=== PATIENT | male | born 1965 | race Caucasian/White ===

== ENCOUNTER 2018-08-29 05:34 | Observation (INO) | payer MEDICAID, OTHER ==
[2018-08-26 16:48] VITALS: Ht 170.2 cm; Wt 88.4 kg
[~2018-08-29] VITALS: Ht 170.2 cm; Wt 88.4 kg
[2018-08-29] VITALS (15 sets, daily range): BP systolic 112–141; BP diastolic 62–87; PULSE 64–104; RESP 11–22
[2018-08-29] MEDS ORDERED: EPHEDrine SULFATE 50 MG/5 ML SYG ONE (07:00)
[2018-08-29] MEDS ORDERED: GELATIN SIZE 100 SPONGE ONE (07:03)
[2018-08-29] MEDS ORDERED: POLYMYXIN/BACITRACIN 1L IRRIG ONE (07:03)
[2018-08-29] MEDS ORDERED: BUPIVACAINE 0.5%/EPI (SDV) 30 ML INJ ONE (07:03)
[2018-08-29] MEDS ORDERED: THROMBIN (BOVINE) 5,000 UNIT VIAL TP ONE (07:03)
--- NOTE | 2018-08-29 07:08 | HPN ---
Date/Time of Note Date/Time of Note DATE: 08/29/18 TIME: 07:08 Interval H&P Admission Note Pt. seen H&P reviewed: No system changes ANA MARIA NARANJO MD Aug 29, 2018 07:08
--- NOTE | 2018-08-29 07:30 | PREAC ---
Date/Time of Note Date/Time of Note DATE: 08/29/18 TIME: 07:29 Anesthesia Eval and Record Evaluation Time Pre-Procedure Interview DATE: 08/29/18 TIME: 07:29 Age 52 Sex male NPO: 8 hrs Preoperative diagnosis Lumbar Radiculopathy Planned procedure Left Lumbar L4-5 Microdiscectomy Past Medical History Past Medical History: None Surgery & Anesthesia Issues No known issue Meds Anticoagulation: No Beta Tristin within 24 hr: No Reason Beta Tristin not given: Pt. not on B-Tristin No Active Prescriptions or Reported Meds Meds reviewed: Yes Allergies Coded Allergies: Penicillins (Verified Allergy, Unknown, SHORTNESS OF BREATH, 08/29/18) PER PT Allergies Reviewed: Yes Labs/Studies Labs Reviewed: Reviewed by anesthesiologist test: N/A Studies: ECG (n/a), CXR (n/a) Pre-procedure Exam Last vitals Vital Signs Date Temp Pulse Resp B/P (MAP) Pulse Ox O2 O2 Flow FiO2 Time Delivery Rate 08/29/18 97.4 64 18 141/87 97 Room Air 06:30 (105) Airway: Adequate mouth opening, Adequate thyromental dist Mallampati: Mallampati II Teeth: Normal Lung: Normal Heart: Normal ASA Physical Status ASA physical status: 2 Emergency: None Planned Anesthetic General/MAC: ETT Planned Pain Management Parenteral pain med Pre-operative Attestations Prior to commencing anesthesia and surgery, the patient was re-evaluated, there was verification of: *The patient's identity *The results of appropriate recent lab work and preoperative vital signs *The above evaluation not changing prior to induction *Anesthetic plan, risk benefits, alternative and complications discussed with patient/family; questions answered; patient/family understands, accepts and wishes to proceed. TABATHA MORENO MD Aug 29, 2018 07:30
[2018-08-29] MEDS ORDERED: HYDROmorphONE 2 MG/ML SYG ONE ×2 (07:34→07:35)
[2018-08-29] MEDS ORDERED: ROCURONIUM 50 MG INJ ONE (07:34)
[2018-08-29] MEDS ORDERED: MIDAZOLAM 1 MG/ML 2 ML INJ ONE (07:34)
[2018-08-29] MEDS ORDERED: CEFAZOLIN 1 GM INJ ONE (07:34)
[2018-08-29] MEDS ORDERED: PROPOFOL 20 ML ONE (07:34)
[2018-08-29] MEDS ORDERED: METOCLOPRAMIDE 10 MG INJ ONE (08:05)
[2018-08-29] MEDS ORDERED: DEXAMETHASONE 4 MG/ML 5 ML INJ ONE (08:05)
[2018-08-29] MEDS ORDERED: ONDANSETRON 4 MG INJ ONE (08:05)
[2018-08-29] MEDS ORDERED: FENTAnyl 50 MCG/ML VIAL IV PRN ×3 (08:30)
[2018-08-29] MEDS ORDERED: LABETALOL HCL 20MG INJ IV PRN (08:30)
[2018-08-29] MEDS ORDERED: DIPHENHYDRAMINE 50 MG INJ IV PRN (08:30)
[2018-08-29] MEDS ORDERED: METOCLOPRAMIDE 10 MG INJ IV PRN (08:30)
[2018-08-29] MEDS ORDERED: EPHEDrine SULFATE 50 MG/5 ML SYG IV PRN (08:30)
[2018-08-29] MEDS ORDERED: ONDANSETRON 4 MG INJ IV PRN ×2 (08:30→10:00)
[2018-08-29] MEDS ORDERED: OXYCODONE/ACETAMINOPHEN (5/325) TAB PO PRN ×2 (08:30)
[2018-08-29] MEDS ORDERED: MEPERIDINE 25 MG INJ IV PRN (08:30)
[2018-08-29] MEDS ORDERED: HYDROmorphONE 1 MG/5 ML IV SYRINGE IV PRN ×3 (08:30)
[2018-08-29] MEDS ORDERED: HEMOSTATIC MATRIX SYG ZFS ONE (08:47)
[2018-08-29] MEDS ORDERED: BETAMET NA PHOS/AC(6 MG/ML) 5ML INJ ONE (08:52)
[2018-08-29] MEDS ORDERED: SUGAMMADEX SODIUM 200 MG/2 ML VIAL IV ONE (09:27)
--- NOTE | 2018-08-29 09:42 | OPR ---
Date/Time of Note Date/Time of Note DATE: 08/29/18 TIME: 09:36 Operative Report Free Text/Dictation DATE OF OPERATION: 08/29/2018 PREOPERATIVE DIAGNOSES: Left L4-5 paracentral disk herniation with L5 radiculopathy POSTOPERATIVE DIAGNOSES: Left L4-5 paracentral disk herniation with L5 radiculopathy OPERATION PERFORMED: Left L4-S5 microdiscectomy SURGEON: Ana Maria Naranjo MD OPERATOR COATING FURNACE:MEGA Elder ANESTHESIA: General endotracheal ESTIMATED BLOOD LOSS: Minimal SURGICAL INDICATION: The patient is a 52 year-old male who presents with a history of left lower extremity pain and weakness. He was found to have a disc herniation which correlated well with his symptoms. The patient had failed conservative treatment. Risks, benefits, and alternatives to microdiscectomy were explained to the patient and they wished to proceed. Risks explained included but were not exclusive of bleeding, infection, cauda equina syndrome, nerve injury, dural tear, iatrogenic instability, recurrent disc herniation, fracture, vascular injury, bowel injury, stroke, heart attack and pulmonary embolism. DESCRIPTION OF TECHNIQUE: The patient was identified in the preoperative area and taken to the operating room. Rapid induction of general endotracheal anesthesia was performed. The patient was given 2 g of cefazolin for prophylaxi s. The patient was then placed in the prone position on the OSI radiolucent table on top of a Chai frame. All bony prominences well padded. The back was prepped and draped in the usual sterile manner. A time out was held. Using a spinal needle and intraoperative fluoroscopy, the appropriate level was clearly identified. The skin was injected using 0.25% Marcaine with epinephrine. Longitudinal midline incision was then created using a 10 blade. Further dissection through soft tissue was performed using electrocautery down to the spinous processes. The dissection was taken down the left side of the lamina and over the facet joint capsule. A self-retaining retractor was applied. Again, intraoperative fluoroscopy confirmed the appropriate level. The microscope was brought into use for microdissection. A small portion of the caudal aspect of the cephalad lamina was resected using a high-speed bur. A series of Kerrison rongeurs were then used to resect the ligamentum flavum. The dura and traversing nerve root were both directly visualized. These were retracted gently in a medial direction. Immediately, the extruded disc fragment was noted. The pseudo anulus was incised using an 15 blade. Several loose fragments of disk were removed. These were removed back to a stable portion of the disk. The disk space was further pressurized using a using normal saline through a syringe to ensure that no loose fragments remained behind. Palpation with a ball-tip probe did not reveal any further stenosis. The traversing left L5 nerve root was noted to be significantly decompressed. Meticulous attention was paid towards hemostasis using FloSeal as well as Gelfoam and thrombin. Care was taken to remove all FloSeal and Gelfoam prior to wound closure. The fascia was then closed using 0 Vicryl in an interrupted fashion. Subcutaneous tissue was closed using 2-0 Vicryl in an interrupted fashion. The skin was closed using a running 4-0 Monocryl stitch. The wound was dressed using Dermabond and a sterile gauze. The patient was returned to the supine position. He was extubated immediately postoperatively and taken to the recovery room in stable condition. I was physically present and participated in the entire operation from incision to closure. COMPLICATIONS: None. Procedure Date: Aug 29, 2018 Preoperative Diagnosis Left L4-5 paracentral disk herniation with L5 radiculopathy Postoperative Diagnosis Left L4-5 paracentral disk herniation with L5 radiculopathy Operation/Procedure Performed Left L4-S5 microdiscectomy Surgeon see signature line Upholstery Cutter MEGA Elder Anesthesia Type: general Estimated Blood Loss: none Transfusion none Specimen Left L4-5 disk Grafts/Implants none Complications none Pt Condition Post Procedure: stable Disposition: PACU Procedure Description DESCRIPTION OF TECHNIQUE: The patient was identified in the preoperative area an d taken to the operating room. Rapid induction of general endotracheal anesthesia was performed. The patient was given 2 g of cefazolin for prophylaxis. The patient was then placed in the prone position on the OSI radiolucent table on top of a Chai frame. All bony prominences well padded. The back was prepped and draped in the usual sterile manner. A time out was held. Using a spinal needle and intraoperative fluoroscopy, the appropriate level was clearly identified. The skin was injected using 0.25% Marcaine with epinephrine. Longitudinal midline incision was then created using a 10 blade. Further dissection through soft tissue was performed using electrocautery down to the spinous processes. The dissection was taken down the left side of the lamina and over the facet joint capsule. A self-retaining retractor was applied. Again, intraoperative fluoroscopy confirmed the appropriate level. The microscope was brought into use for microdissection. A small portion of the caudal aspect of the cephalad lamina was resected using a high-speed bur. A series of Kerrison rongeurs were then used to resect the ligamentum flavum. The dura and traversing nerve root were both directly visualized. These were retracted gently in a medial direction. Immediately, the extruded disc fragment was noted. The pseudo anulus was incised using an 15 blade. Several loose fragments of disk were removed. These were removed back to a stable portion of the disk. The disk space was further pressurized using a using normal saline through a syringe to ensure that no loose fragments remained behind. Palpation with a ball-tip probe did not reveal any further stenosis. The traversing left L5 nerve root was noted to be significantly decompressed. Meticulous attention was paid towards hemostasis using FloSeal as well as Gelfoam and thrombin. Care was taken to remove all FloSeal and Gelfoam prior to wound closure. The fascia was then closed using 0 Vicryl in an interrupted fashion. Subcutaneous tissue was closed using 2-0 Vicryl in an interrupted fashion. The skin was closed using a running 4-0 Monocryl stitch. The wound was dressed using Dermabond and a sterile gauze. The patient was returned to the supine position. He was extubated immediately postoperatively and taken to the recovery room in stable condition. I was physically present and participated in the entire operation from incision to closure. ANA MARIA NARANJO MD Aug 29, 2018 09:42
--- NOTE | 2018-08-29 09:45 | PDOCDIS ---
Discharge Instructions CONDITION [id number] Patient Condition: [id number] Good HOME CARE INSTRUCTIONS: [id number] Diet Instructions: [id number] Regular ACTIVITY: [id number] Activity Restrictions: [id number] Avoid heavy lifting [id number] Bathing Restrictions: [id number] Shower FOLLOW UP/APPOINTMENTS Follow-up Plan Follow-up with Dr. Naranjo in 2 weeks ANA MARIA NARANJO MD Aug 29, 2018 09:45
--- NOTE | 2018-08-29 09:53 | PAC ---
Date/Time of Note Date/Time of Note DATE: 08/29/18 TIME: 09:53 Post-Anesthesia Notes Post-Anesthesia Note Last documented vital signs Vital Signs Date Temp Pulse Resp B/P (MAP) Pulse Ox O2 O2 Flow FiO2 Time Delivery Rate 08/29/18 98.8 64 18 141/87 97 Room Air 09:47 (105) Activity: WNL Respiratory function: WNL Cardiovascular function: WNL Mental status: Baseline Pain reasonably controlled: Yes Hydration appropriate: Yes Nausea/Vomiting absent: Yes TABATHA MORENO MD Aug 29, 2018 09:53
[2018-08-29] MEDS ORDERED: ACETAMINOPHEN 325 MG TAB PO PRN (10:00)
[2018-08-29] MEDS ORDERED: HYDROmorphONE 0.5 MG/0.5 ML SYG IV PRN (10:00)
[2018-08-29] MEDS ORDERED: HYDROCODONE/APAP (5/325) TAB PO PRN ×2 (10:00)
[2018-08-29] MEDS ORDERED: PROCHLORPERAZINE 10 MG TAB PO PRN (10:00)
[2018-08-29] MEDS ORDERED: NACL 0.9% 3 ML SYG IV SCH (10:00)
[2018-08-29] MEDS ORDERED: NALOXONE (0.4 MG/ML) INJ IV PRN (10:00)
== END 2018-08-29 12:30 | disposition home or self-care (01) ==
LOC: SDS 05:34 → REC 10:31
PROVIDERS: ADMIT Orthopaedic Surgery; ATTEND Orthopaedic Surgery
DX: M51.16 Intervertebral disc disorders with radiculopathy, lumbar region (principal)
CPT/HCPCS: 63030; 72100; 88304; 97161; 99217; J0690; J0702; J1100; J1170; J2250; J2405; J2765; G0378